=== PATIENT | male | born 1990 | race Caucasian/White ===

== ENCOUNTER 2016-12-28 16:12 | Emergency (ER) | payer SELFPAY ==
[2016-12-28 16:29] VITALS: BP 154/86
--- NOTE | 2016-12-28 17:20 | UC ---
Skin Complaint HPI - HPI Summary HPI Summary: PT SUSTAINED 3 TICK BITES A WEEK AGO. 2 WERE REMOVED WITHIN AN HOUR OF ATTACHMENT BUT ONE MAY HAVE BEEN ATTACHED FOR 12-24 HOURS. PT HAS HAD DULL POSTERIOR ALVAREZ, FATIGUE, MYALGIAS AND CONGESTION FOR SEVERAL DAYS. NO COUGH. FEELS WARM/SUBJECTIVE FEVER. SX BETTER WITH IBUPROFEN. HAD LYME 2 YEARS AGO AND IS CONCERNED ABOUT REINFECTION. - History of Current Complaint Chief Complaint: UCSkin Time Seen by Provider: 12/28/16 16:36 Stated Complaint: TICK BITES & (PERSONAL) Hx Obtained From: Patient Onset/Duration: Gradual Onset, Lasting Days, Still Present Timing: Constant Onset Severity: Moderate Current Severity: Moderate Pain Intensity: 0 Pain Scale Used: 0-10 Numeric Aggravating Factor(s): Nothing Alleviating Factor(s): Nothing Associated Signs & Symptoms: Positive: Fever. Negative: Weakness, Chills, Cough , Wheezing, Chest Pain, Hoarseness, Throat Tightening, Rash - Allergy/Home Medications Allergies/Adverse Reactions: Allergies Allergy/AdvReac Type Severity Reaction Status Date / Time No Known Allergies Allergy Verified 12/28/16 16:22 Review of Systems Constitutional: Fever, Fatigue Skin: Negative ENT: Nasal Discharge Respiratory: Negative Cardiovascular: Negative Gastrointestinal: Negative Musculoskeletal: Myalgia Neurological: Headache All Other Systems Reviewed And Are Negative: Yes PMH/Surg Hx/FS Hx/Imm Hx Previously Healthy: Yes - Surgical History Surgical History: None - Family History Known Family History: Positive: Cardiac Disease, Hypertension, Diabetes - Social History Alcohol Use: Occasionally Substance Use Type: None Smoking Status (MU): Never Smoked Tobacco Physical Exam Triage Information Reviewed: Yes Appearance: Well-Appearing, No Pain Distress, Well-Nourished Vital Signs: Initial Vital Signs Temp 99 F 12/28/16 16:22 Pulse 92 12/28/16 16:22 Resp 16 12/28/16 16:22 BP 154/86 12/28/16 16:22 Pulse Ox 99 12/28/16 16:22 Vital Signs Reviewed: Yes Eyes: Positive: Conjunctiva Clear ENT: Positive: Hearing grossly normal Neck: Positive: Supple, Nontender, No Lymphadenopathy Respiratory Exam: Normal Cardiovascular Exam: Normal Abdomen Description: Positive: Soft Musculoskeletal: Positive: No Edema Neurological: Positive: Alert Psychological: Positive: Age Appropriate Behavior Skin: Negative: rashes Diagnostics - Laboratory Diagnostic Studies Completed/Ordered: RAPID FLU NEGATIVE. Course/Dx - Diagnoses Provider Diagnoses: 1. TICK BITE. 2. STD TESTING Discharge - Discharge Plan Condition: Stable Disposition: HOME Patient Education Materials: Tick Bite (ED) Referrals: No Primary Care Phys,NOPCP [Primary Care Provider] - Additional Instructions: YOUR SYMPTOMS ARE NOT NECESSARILY INDICATIVE OF LYME DISEASE BUT WE WILL CHECK LYME SEROLOGY TODAY. PLEASE NOTE THE FOLLOWING : The use of serologic testing in populations with a low probability of Lyme disease results in a greater likelihood of false positive test results than true positive test results. Antibody titers to B. burgdorferi decline gradually after successful antibiotic treatment of Lyme disease. However, positive responses often persist for years, albeit at lower titers, after successful treatment. Routine follow-up serologic testing is not recommended. Reinfection Since many patients live in endemic areas, reinfection after antibiotic therapy is not an uncommon occurrence. Most reinfection is diagnosed by identification of a new erythema migrans (EM) rash in a patient with a prior history of early Lyme disease that was treated with antibiotic therapy. Reinfection has not been reported in patients who previously had Lyme arthritis , a late disease manifestation. Although antibody titers decline over time, this decline is unpredictable and some patients may continue to have positive anti-B. burgdorferi IgM and IgG antibody tests for years. In the rare case where there has been a documented decline in a serologic test, a subsequent increase (>threefold) in antibody titer by RENATO in the setting of suspicious symptoms may herald a reinfection. However, in practical use, it is rare to have this information available and variability in titers during different runs even by the same laboratory makes interpretation of small differences in RENATO titer difficult. Repeated serologic testing to document decline of antibody titers is not recommended. The majority of patients with early Lyme disease who receive appropriate antibiotic therapy have complete resolution of the signs and symptoms of infection within 20 days and, in one trial, erythema migrans (the rash) and its associated symptoms resolved in a mean of five to six days. Patients who are more systemically ill at the beginning of treatment may take longer to recover. Some patients have mild subjective symptoms, such as headache, musculoskeletal pain, arthralgia, or fatigue, that persist for weeks to months after treatment. These subjective findings often resolve spontaneously, usually within six months , without further antibiotic therapy; they are not due to ongoing active Lyme disease. Almost all patients who have a satisfactory response to antibiotic therapy do well over the [facility]. FLU SWAB NEGATIVE. WE WILL ALSO TEST YOU TODAY FOR STD INCLUDING HIV, SYPHILIS, GONORRHEA, CHLAMYDIA AND HEPATITIS C PER YOUR REQUEST. CALL THE NUMBER BELOW FOR ASSISTANCE IN ESTABLISHING WITH A PCP An additional resource available to assist in finding the appropriate physician for your health care needs is [facility] ([facility]). You may contact them by calling [phone].
[2016-12-29 12:36] LABS: Hematocrit 47 % (42-52); Mean Corpuscular HGB Conc 34 g/dl (31-36); Mean Corpuscular Hemoglobin 29 pg (27-31); Mean Corpuscular Volume 85 fL (80-94); Mean Platelet Volume 9 um3 (7.4-10.4); Red Blood Count 5.54 10^6/ul (4.0-5.4); Red Cell Distribution Width 13 % (10.5-15); White Blood Count 6.4 10^3/ul (3.5-10.8)
[2016-12-29 13:31] LABS: Syphilis Index < 0.1 Index
--- NOTE | 2016-12-30 17:36 | UC ---
Progress - Progress Note Progress Note: pt with neg lyme dx no change azael 12/30/16
== END 2016-12-28 17:56 | disposition home or self-care (01) ==
LOC: UCEAST 16:12
DX: S80.262A Insect bite (nonvenomous), left knee, initial encounter (principal); W57.XXXA Bitten or stung by nonvenomous insect and other nonvenomous arthropods, initial encounter; Y93.9 Activity, unspecified; Y92.9 Unspecified place or not applicable; Z11.3 Encounter for screening for infections with a predominantly sexual mode of transmission; R51 Headache; R53.83 Other fatigue; M79.1 Myalgia; R09.89 Other specified symptoms and signs involving the circulatory and respiratory systems; R50.9 Fever, unspecified
CPT/HCPCS: 36415; 85025; 86592; 86618; 86703; 86803; 87491; 87502; 87591; 99211; G0463